=== PATIENT | male | born 1975 | race Caucasian/White ===

== ENCOUNTER 2020-04-22 23:17 | Emergency (ER) | payer MEDICARE, MEDICAID, SELFPAY ==
[2020-04-22 23:20] VITALS: BP 145/71; PULSE 81; RESP 16; TEMP 36.7; O2SAT 99; BMI 31.9
[2020-04-22 23:31] VITALS: BP 141/70; PULSE 80; RESP 16; TEMP 36.7; O2SAT 98
== END 2020-04-23 00:01 | disposition left against medical advice (07) ==
LOC: ER 23:56
PROVIDERS: Emergency Provider Emergency Medicine; PCP Family Medicine
DX: Z53.21 Procedure and treatment not carried out due to patient leaving prior to being seen by health care provider (principal); T40.1X1A Poisoning by heroin, accidental (unintentional), initial encounter; R03.0 Elevated blood-pressure reading, without diagnosis of hypertension
CPT/HCPCS: 99281